=== PATIENT | female | born 1980 | race Caucasian/White ===

== ENCOUNTER 2020-06-23 09:14 | Inpatient (IN) ==
[2020-06-23] MEDS ORDERED: Lactated Ringers 1000 ml BAG 1,000 ML IV ONE ×2 (09:29→22:45)
[2020-06-23] MEDS ORDERED: Buffered Lidocaine 1% SYRIN 1 ml INTRADERM ONE (09:29)
[2020-06-23] MEDS ORDERED: Oxytocin in LR 20 UNITS/1,000 ML BAG IVPB SCH (10:00)
[2020-06-23] MEDS ORDERED: Penicillin G Potassium IV 5,000,000 UNITS in NS 0.9% 100 ml BAG 100 ML IVPB ONE (10:00)
[2020-06-23 11:35] LABS: ABS Basophils 0.1 10^3/ul (0-0.2); ABS Eosinophils 0.3 10^3/ul (0-0.6); ABS Lymphocytes 2.2 10^3/ul (1.0-4.8); ABS Monocytes 0.7 10^3/ul (0-0.8); ABS Neutrophils 8.2 10^3/ul (1.5-7.7); Eosinophil % 2.4 %; Hematocrit 32 % (35-47); Hemoglobin 10.4 g/dL (12.0-16.0); Lymphocyte % 19.1 %; Mean Corpuscular HGB Conc 33 g/dL (31-36); Mean Corpuscular Hemoglobin 27 pg (27-31); Mean Corpuscular Volume 82 fL (80-97); Mean Platelet Volume 8.1 fL (7.4-10.4); Nucleated Red Blood Cells % 0.1; Platelet Count 273 10^3/uL (150-450); Red Blood Count 3.91 10^6 /uL (3.70-4.87); Red Cell Distribution Width 15 % (10-15); White Blood Count 11.3 10^3/uL (3.5-10.8)
[2020-06-23 12:13] LABS: Urine Benzodiazepine Screen None Detected (None Detect); Urine Cannabinoids Screen None Detected (None Detect); Urine Opiates Screen None Detected (None Detect)
[2020-06-23] MEDS: Lactated Ringers 1000 ml BAG 1,000 ML IV SCH ×2 (13:32→18:05)
[2020-06-23] MEDS: Penicillin G Potassium IV 3,000,000 UNITS in NS 0.9% 100 ml BAG 100 ML IVPB SCH ×3 (15:40→23:35)
[2020-06-23] MEDS ORDERED: OBEPIDURAL 250 ML EPIDURAL ONE (20:04)
[2020-06-23] MEDS ORDERED: Lidocaine 1% VIAL 10 MG/ML VIAL ONE (20:38)
[2020-06-23] MEDS ORDERED: Bupivacaine 0.25% SDV PF 10 ML VIAL INJ ONE (20:39)
[2020-06-23] MEDS ORDERED: Phenylephrine 40 mcg/mL 10mL (400mcg) SYRINGE IV PUSH PRN ×2 (22:45)
[2020-06-23] MEDS ORDERED: Sodium Citrate/Citric Acid LIQ 15 ML UDC PO PRN (22:45)
[2020-06-23] MEDS ORDERED: Lactated Ringers 1000 ml BAG 500 ML IV PRN ×2 (22:45)
[2020-06-23] MEDS ORDERED: Lactated Ringers 1000 ml BAG 1,000 ML IV SCH (23:00)
[2020-06-23] MEDS ORDERED: OBEPIDURAL 250 ML EPIDURAL SCH (23:00)
[2020-06-24] MEDS: Penicillin G Potassium IV 3,000,000 UNITS in NS 0.9% 100 ml BAG 100 ML IVPB SCH (03:29)
[2020-06-24] MEDS ORDERED: ceFOXitin 2 GM IVPREMIX 2 GM/50 ML BAG ONE (06:34)
[2020-06-24] MEDS ORDERED: Morphine PF AMP (0.5MG/ML) 5 MG/10 ML AMP ONE (07:05)
[2020-06-24] MEDS ORDERED: fentaNYL 100 mcg/2 ml 50 MCG/ML VIAL ONE (07:05)
[2020-06-24] MEDS ORDERED: Carboprost Tromethamine 250 mcg 1 ml VIAL ONE (07:28)
[2020-06-24] MEDS ORDERED: Lidocaine 2% PF 10 ML AMP ONE (07:39)
[2020-06-24] MEDS ORDERED: Bupivacaine-MPF SPINAL 7.5 MG/ML - 2ML AMP ONE (07:55)
[2020-06-24] MEDS ORDERED: Ondansetron 4 mg VIAL 2 MG/ML 2 ml VIAL ONE (08:12)
[2020-06-24] MEDS ORDERED: Dexamethasone IV 4 MG/ML VIAL 1 ml VIAL ONE (08:12)
[2020-06-24] MEDS ORDERED: Oxytocin 10 UNITS/ML 1 ML VIAL ONE ×2 (08:28→08:29)
[2020-06-24] MEDS ORDERED: DiMENhydriNATE IV 50 mg/ml 1 ml VIAL ONE (08:29)
[2020-06-24] MEDS ORDERED: Dibucaine 1% OINT 28.35 GM TUBE PR PRN (08:45)
[2020-06-24] MEDS ORDERED: Witch Hazel PAD JAR TOPICAL PRN ×2 (08:45→08:47)
[2020-06-24] MEDS ORDERED: Glycerin ADULT 2.4 gm SUPP PR PRN ×2 (08:45→08:47)
[2020-06-24] MEDS ORDERED: Oxytocin 10 UNITS/ML 1 ML VIAL IM ONE (08:47)
[2020-06-24] MEDS ORDERED: Lactated Ringers 1000 ml BAG 1,000 ML IV SCH (09:00)
[2020-06-24] MEDS ORDERED: Oxytocin in LR 20 UNITS/1,000 ML BAG IVPB SCH (09:00)
[2020-06-25 05:20] LABS: ABS Basophils 0.1 10^3/ul (0-0.2); ABS Eosinophils 0.2 10^3/ul (0-0.6); ABS Lymphocytes 2.4 10^3/ul (1.0-4.8); ABS Neutrophils 9.3 10^3/ul (1.5-7.7); Eosinophil % 1.7 %; Hematocrit 26 % (35-47); Hemoglobin 8.4 g/dL (12.0-16.0); Lymphocyte % 18.6 %; Mean Corpuscular HGB Conc 33 g/dL (31-36); Mean Corpuscular Hemoglobin 27 pg (27-31); Mean Corpuscular Volume 83 fL (80-97); Mean Platelet Volume 7.9 fL (7.4-10.4); Platelet Count 229 10^3/uL (150-450); Red Blood Count 3.13 10^6 /uL (3.70-4.87); Red Cell Distribution Width 15 % (10-15)
[2020-06-26 07:58] VITALS: BP 114/80
== END 2020-06-26 11:11 | disposition home or self-care (01) | DRG 540 ==
LOC: MCHOBOUT 09:14 → MCHOB 09:34 → MERGE 09:34 → MCHOB 06-24 10:33
PROVIDERS: ADMIT Obstetrics & Gynecology; ATTEND Obstetrics & Gynecology

== ENCOUNTER 2021-06-21 06:42 | Inpatient (IN) ==
[2021-06-21 07:19] LABS: ABS Basophils 0.1 10^3/ul (0-0.2); ABS Eosinophils 0.2 10^3/ul (0-0.6); ABS Lymphocytes 1.8 10^3/ul (1.0-4.8); ABS Monocytes 0.7 10^3/ul (0-0.8); ABS Neutrophils 5.2 10^3/ul (1.5-7.7); Eosinophil % 2.2 %; Hematocrit 29 % (35-47); Hemoglobin 9.9 g/dL (12.0-16.0); Lymphocyte % 23.2 %; Mean Corpuscular HGB Conc 34 g/dL (31-36); Mean Corpuscular Hemoglobin 27 pg (27-31); Mean Corpuscular Volume 79 fL (80-97); Mean Platelet Volume 7.8 fL (7.4-10.4); Platelet Count 270 10^3/uL (150-450); Red Blood Count 3.67 10^6 /uL (3.70-4.87); Red Cell Distribution Width 15 % (10-15)
[2021-06-21] MEDS ORDERED: Sodium Citrate/Citric Acid LIQ 15 ML UDC ONE (07:29)
[2021-06-21] MEDS ORDERED: ceFOXitin 2 GM IVPREMIX 2 GM/50 ML BAG ONE (07:29)
[2021-06-21 07:35] LABS: Urine Appearance Cloudy; Urine Bilirubin Negative (Negative); Urine Blood Negative (Negative); Urine Color Yellow; Urine Glucose Negative (Negative); Urine Ketones Trace (Negative); Urine Nitrite Negative (Negative); Urine Protein Negative (Negative); Urine Urobilinogen Negative (Negative)
[2021-06-21] MEDS ORDERED: Morphine PF AMP (0.5MG/ML) 5 MG/10 ML AMP ONE (07:39)
[2021-06-21] MEDS ORDERED: Ondansetron 4 mg VIAL 2 MG/ML 2 ml VIAL ONE (07:40)
[2021-06-21] MEDS ORDERED: Phenylephrine IV 10 MG/ML 1 ml VIAL ONE (07:40)
[2021-06-21] MEDS ORDERED: Oxytocin 10 UNITS/ML 1 ML VIAL ONE (07:40)
[2021-06-21] MEDS ORDERED: EPHEDrine (Pressors) 50 MG/ML VIAL ONE (07:40)
[2021-06-21] MEDS ORDERED: ceFOXitin 1 GM in NS 0.9% 50 ML BAG IVPB ONE (08:15)
[2021-06-21] MEDS ORDERED: diPHENhydraMINE IV 50 MG/ML 1 ml VIAL (BENADRYL) IV PRN (09:09)
[2021-06-21] MEDS ORDERED: Naloxone 0.4 mg VIAL 0.4 mg/ml 1 ml VIAL IV PRN (09:09)
[2021-06-21] MEDS ORDERED: Ondansetron 4 mg VIAL 2 MG/ML 2 ml VIAL IV PRN (09:09)
[2021-06-21] MEDS ORDERED: Acetaminophen IV 1 GM/100ML 100 ML IV PRN (09:10)
[2021-06-21] MEDS ORDERED: Witch Hazel PAD JAR TOPICAL PRN (10:07)
[2021-06-21] MEDS ORDERED: Glycerin ADULT 2.4 gm SUPP PR PRN (10:07)
[2021-06-21] MEDS ORDERED: Dibucaine 1% OINT 28.35 GM TUBE PR PRN (10:07)
[2021-06-21] MEDS ORDERED: Lactated Ringers 1000 ml BAG 1,000 ML IV SCH (11:00)
[2021-06-21] MEDS ORDERED: Oxytocin in LR 20 UNITS/1,000 ML BAG IVPB SCH (11:00)
[2021-06-21 11:25] LABS: Urine Appearance Clear; Urine Bacteria Absent (Absent); Urine Bilirubin Negative (Negative); Urine Blood 1+ (Negative); Urine Color Yellow; Urine Glucose Negative (Negative); Urine Ketones Trace (Negative); Urine Nitrite Negative (Negative); Urine Protein Negative (Negative); Urine Red Blood Cell Trace(0-2/hpf) (Absent); Urine Specific Gravity 1.013 (1.002-1.030); Urine Squamous Epithelial Cell Present (Absent); Urine Urobilinogen Negative (Negative); Urine White Blood Cell Trace(0-5/hpf) (Absent)
[2021-06-21] MEDS ORDERED: DiMENhydriNATE IV 50 mg/ml 1 ml VIAL IV PUSH PRN (14:42)
[2021-06-22 06:13] LABS: ABS Eosinophils 0.3 10^3/ul (0-0.6); ABS Lymphocytes 1.6 10^3/ul (1.0-4.8); ABS Monocytes 0.7 10^3/ul (0-0.8); ABS Neutrophils 6.2 10^3/ul (1.5-7.7); Eosinophil % 2.8 %; Hematocrit 25 % (35-47); Hemoglobin 8.3 g/dL (12.0-16.0); Lymphocyte % 18.5 %; Mean Corpuscular HGB Conc 33 g/dL (31-36); Mean Corpuscular Hemoglobin 26 pg (27-31); Mean Corpuscular Volume 79 fL (80-97); Mean Platelet Volume 7.8 fL (7.4-10.4); Nucleated Red Blood Cells % 0.1; Platelet Count 229 10^3/uL (150-450); Red Blood Count 3.22 10^6 /uL (3.70-4.87); Red Cell Distribution Width 15 % (10-15); White Blood Count 8.9 10^3/uL (3.5-10.8)
[2021-06-23 13:55] VITALS: BP 135/63
[2021-06-24] MEDS ORDERED: Scopolamine PATCH Remove NOTE PATCH OFF SCH (15:00)
== END 2021-06-23 12:15 | disposition home or self-care (01) | DRG 540 ==
LOC: MCHOB 06:42
PROVIDERS: ADMIT Obstetrics & Gynecology; ATTEND Obstetrics & Gynecology